=== PATIENT | male | born 1970 | race Caucasian/White ===

== ENCOUNTER 2020-02-08 19:01 | Emergency (ER) | payer MEDICAID ==
[~2020-02-08] VITALS: Ht 177.8 cm; Wt 117.0 kg
[2020-02-08 19:13] VITALS: Ht 177.8 cm; Wt 117.0 kg
[2020-02-08 22:01] VITALS: BP 155/106
== END 2020-02-08 22:01 | disposition home or self-care (01) ==
LOC: ED 19:01
DX: S86.912A Strain of unspecified muscle(s) and tendon(s) at lower leg level, left leg, initial encounter (principal); X58.XXXA Exposure to other specified factors, initial encounter; Y93.89 Activity, other specified; Y92.89 Other specified places as the place of occurrence of the external cause; Y99.8 Other external cause status